=== PATIENT | male | born 1995 | race Caucasian/White ===

== ENCOUNTER 2017-01-25 12:39 | Emergency (ER) | payer OTHER ==
[~2017-01-25] VITALS: Ht 175.3 cm; Wt 75.0 kg
[2017-01-25 12:42] VITALS: BP 134/79; PULSE 91; RESP 16; O2SAT 100
--- NOTE | 2017-01-25 12:59 | ED.REPORT ---
HPI-Extremity Problem Upper Date of Service Jan 25, 2017 ED Provider: Pedro rOr MD 21 year old male presents to the ER complaining of a year or two of intermittent left elbow pain. He has a history of similar in both elbows that he attributes to hyperextension when he played little league years ago. Patient does not voice any further medical complaints. Nursing Notes Stated Complaint: LEFT ELBOW PAIN Chief Complaint: Extremity Trauma Nursing Notes Reviewed: Yes Allergies: Coded Allergies: No Known Allergies (Unverified , 01/25/17) No Active Prescriptions or Reported Meds General Time Seen by MD: 12:46 Chief Complaint Elbow injury left Hx Obtained From: Patient Arrived By: Walk-in Onset Occurred: More than a week ago... (>6 months) Location: : Elbow left Quality: Painful Severity: Current: No pain currently Severity: Maximum: Moderate Pertinent Negative: Pt denies other symptoms Exacerbated by: Pronation, Supination Similar Sx Previous: Yes Past Medical History Past Medical History Denies Past Surgical History Denies Review of Systems Musculoskeletal: Reports: Joint pain (Left Elbow), Denies: Back pain, Extremity pain, Lumbar pain, Neck pain, Thoracic pain Neurologic: Denies: Headache Complete sys rev & neg: except as marked. Physical Exam Initial Vital Signs Vital Signs (First) Date Time Temp Pulse Resp B/P Pulse Ox O2 Delivery O2 Flow Rate FiO2 01/25/17 12:42 35.9 91 16 134/79 100 Room Air Initial VS: Reviewed General/Constitutional: Well-developed, Well-nourished Head / Eyes: Atraumatic, Normocephalic, PERRL ENT: Mucous membranes moist, Conjunctiva normal, No scleral icterus Neck: Supple, Non-tender, Full range of motion Skin: Warm, Dry, No cyanosis Neurologic: Alert, Oriented, Nonfocal Psychiatric: Mood/affect normal, Behavior normal, Normal thought content Upper Extremity / MS: Full range of motion, No swelling, Non-tender, Neurologic intact, Vascular intact Upper Ext Brief Normals: Elbow L exam normal Re-Eval/Medical Decision Med Decision/Clinical Course 21-year-old male presenting complaining of left elbow pain for one year intermittent. Pain is resolved by the time of evaluation. Repetitive motions at work. Difficult to assess given pain is resolved. No trauma therefore no x-ray indicated. Possibly tendinitis. Recommend rice. Gave Arturo wrap. Re-Evaluation/Progress : Time of Eval: 13:33 Re-Evaluation/Progress Note: Discussed physical examination findings and plan to discharge. Patient is amenable to the plan. Return precautions given. All other questions addressed. Counseled Regarding: Diagnosis, Need for follow-up, When/why to return to ED Discharge & Departure Impression: Primary Impression: Elbow pain Disposition: Home Discharge Condition All VS Reviewed: Yes Condition: Stable Additional Instructions: Rest your elbow when it is painful. Use the ARTURO wrap as directed. Apply ice and heat to treat pain. Tylenol or ibuprofen if needed, as directed. Return to the ER if you develop worsening or uncontrollable pain. Referrals: [facility] (PCP) [facility] Attestation Portions of this note were transcribed by Jean Lagos. I, Dr. Orr, personally performed the history, physical exam and medical decision-making; I reviewed and confirmed the accuracy of the information in the transcribed note. Signed by: Chevy Lau, 01/25/2017 at 13:39 Pedro Orr MD Jan 25, 2017 12:59 JEAN LAGOS Jan 25, 2017 13:02
== END 2017-01-25 14:05 | disposition home or self-care (01) ==
LOC: SED 12:39
DX: M25.522 Pain in left elbow (principal)